=== PATIENT | male | born 1955 | race Caucasian/White ===

== ENCOUNTER 2018-02-03 15:49 | Outpatient (CLI) | payer OTHER ==
--- NOTE | 2018-02-03 16:47 | CT ---
CT LUMBAR SPINE WITHOUT CONTRAST: Indication: Low back pain extending down left leg. Comparison: None. FINDINGS: There is post-surgical change of the interbody fusion at L5-S1 with associated interbody cages. There appears to be solid osseous incorporation of a bone graft. No appreciably osseous central canal narr owing is evident. There is some mild osseous neural foraminal narrowing. There is some vacuum disc phenomenon seen at L4-5 likely related to some disc instability. There is s uggestion of a broad based disc bulge at L4-5 likely inducing at least mild bilateral neural foramina l narrowing and possibly mild central canal narrowing. At L3-4, there is no definite appreciable osseous central canal narrowing. There is suggestion of mil d bilateral neural foraminal narrowing. At L2-3, there is no appreciable osseous central canal or neural foraminal narrowing. At L1-2, there is no appreciable osseous central canal or neural foraminal narrowing. Visualized retroperitoneum demonstrate mild vascular calcifications involving the abdominal aorta. IMPRESSION: 1. Solid osseous incorporation seen at the L5-S1 interbody fusion site. 2. Suggestion of some mild neuroforaminal narrowing at L3-4 through L5-S1. POS: [facility]
== END 2018-02-03 15:50 | disposition home or self-care (01) ==
LOC: TBSIIMAG 15:49
PROVIDERS: ATTEND Neurological Surgery
DX: M54.16 Radiculopathy, lumbar region (principal); Z98.1 Arthrodesis status
CPT/HCPCS: 72131